=== PATIENT | male | born 1975 | race Two or more races ===

== ENCOUNTER 2024-02-17 07:30 | Outpatient (RCR) | payer OTHER, SELFPAY | END 2024-04-12 13:41 | disposition home or self-care (01) | PROVIDERS: Visit Provider Student in an Organized Health Care Education/Training Program | DX: M77.8 Other enthesopathies, not elsewhere classified (principal); M79.632 Pain in left forearm; Z51.89 Encounter for other specified aftercare | CPT/HCPCS: 97035; 97110; 97140; 97166; X5282 ==